=== PATIENT | female | born 1945 | race Caucasian/White ===

== ENCOUNTER → 2017-04-01 | Outpatient (CLI) | payer SELFPAY | LOC: US 16:12 | PROVIDERS: ATTEND Otolaryngology | DX: Z02.9 Encounter for administrative examinations, unspecified (principal) ==

== ENCOUNTER → 2017-04-07 | Outpatient (CLI) | payer MEDICARE, OTHER | LOC: US 09:07 | PROVIDERS: ATTEND Otolaryngology | DX: E04.1 Nontoxic single thyroid nodule (principal) | CPT/HCPCS: 88104; 88172 ==

== ENCOUNTER → 2017-04-07 | Outpatient (CLI) | payer MEDICARE, OTHER ==
[2017-04-07 08:49] LABS: INR 0.9
--- NOTE | 2017-04-07 16:27 | RADIOLOGY IMAGING REPORT ---
FACILITY: [facility] PATIENT NAME: Estela Koch : 1945 MR: [id number] V: [id number] EXAM DATE: ORDERING PHYSICIAN: MELLISA MORENO TECHNOLOGIST: Location: [facility] [place] Patient: Estela Koch : 1945 Visit/Account:[id number] Date of Sevice: 04/07/2017 Exam type: THYROID BIOPSY FINE NEEDLE ASP History: Right thyroid mass Comparison: Outside thyroid ultrasound. Findings: Informed consent was obtained. The right-sided the patient's neck was prepped and draped in usual st erile fashion. Local anesthesia was accomplished with 1% lidocaine. Under sonographic guidance four 25-gauge FNA biopsies were obtained through the complex cystic mass in the right lobe. Samples were given to the glass technologist for processing. The procedure was accomplished without apparent complication. IMPRESSION: 1. Successful sonographically guided right-sided thyroid biopsy Report Dictated By: Parvin Fay MD at 04/07/2017 4:21 PM Report E-Signed By: Parvin Fay MD at 04/07/2017 4:23 PM WSN:[email or web address]
== END ==
LOC: LAB 08:30
PROVIDERS: ATTEND Otolaryngology
DX: E04.1 Nontoxic single thyroid nodule (principal)
CPT/HCPCS: 10022; 36415; 76942; 85610

== ENCOUNTER → 2018-07-19 | Outpatient (CLI) | payer MEDICARE, OTHER ==
--- NOTE | 2018-07-19 10:27 | RADIOLOGY IMAGING REPORT ---
FACILITY: [facility] PATIENT NAME: Estela Koch : 1945 MR: [id number] V: [id number] EXAM DATE: ORDERING PHYSICIAN: MELLISA MORENO TECHNOLOGIST: Location: [facility] Patient: Estela Koch : 1945 Visit/Account:[id number] Date of Sevice: 07/19/2018 THYROID HISTORY: Thyroid Nodule COMPARISON: Ultrasound biopsy dated 04/07/2017 FINDINGS: SIZE: Normal. Right lobe: 5.8 x 2.9 x 3.7 cm Left lobe: 3.6 x 1.0 x 1.0 cm Isthmus: 102 mm Thyroid heterogeneity: Homogeneous. NODULES: Right lobe: * Complex solid and cystic nodule filling the right thyroid lobe measuring approximate 3.7 x 2.7 x 3 .5 cm, grossly not significantly changed since prior exam. The cystic component may be slightly incr eased. Solid components or not definitively increased. Left lobe: * No nodule with a high suspicion sonographic pattern or measuring greater than or equal to 1 cm. La rgest nodule measures up to 8 mm Isthmus: * None discrete. VASCULARITY: Within normal limits. ADDITIONAL FINDINGS: None. IMPRESSION: 1. Complex nodule within the right thyroid lobe with large cystic component. There is no gross sign ificant change since prior exam. 2. No dominant nodules within the left thyroid lobe. REFERENCE: 2015 [employer] Management Guidelines for Adult Patients with Thyroid Nodules and D ifferentiated Thyroid Cancer: The [place] [employer] Guidelines Task Force on Thyroid Nodul es and Differentiated Thyroid Cancer. SONOGRAPHIC PATTERNS: * Benign: Purely cystic nodules (no solid component); estimated risk of malignancy <1 percent; no bi opsy recommended. * Very Low Suspicion: Spongiform or partially cystic nodules without any of the sonographic features described in low, intermediate, or high suspicion patterns; estimated risk of malignancy <3 percent; consider FNA at > 2 cm (Observation without FNA is also a reasonable option). * Low Suspicion: Isoechoic or hyperechoic solid nodule, or partially cystic nodule with eccentric so lid areas, without microcalcification, irregular margin or ETE (extra-thyroidal extension), or taller than wide shape; estimated risk of malignancy 5-10 percent; recommend FNA at >1.5 cm. * Intermediate Suspicion: Hypoechoic solid nodule with smooth margins without microcalcifications, E TE (extra-thyroidal extension), or taller than wide shape; estimated risk of malignancy 10-20 percent ; recommend FNA at > 1 cm. * High Suspicion: Solid hypoechoic nodule or solid hypoechoic component of a partially cystic nodule with one or more of the following features: irregular margins (infiltrative, microlobulated), microc alcifications, taller than wide shape, rim calcifications with small extrusive soft tissue component, evidence of ETE (extra-thyroidal extension); estimated risk of malignancy >70-90 percent; recommend FNA at > 1 cm. NOTES: * Although a sonographically suspicious subcentimeter thyroid nodule without evidence of extrathyroi kim extension or sonographically suspicious lymph nodes may be observed with close sonographic follow -up rather than pursuing immediate FNA, patient age and preference may modify decision-making. * A > 50% interval increase in nodule volume and/or development of new suspicious sonographic featur es are felt to be a valid reasons for potential re-aspiration of a nodule previously shown to have be nign FNA cytology. Report Dictated By: Abdi Mas MD at 07/19/2018 10:21 AM Report E-Signed By: Abdi Mas MD at 07/19/2018 10:24 AM WSN:[email or web address]
== END ==
LOC: US 08:31
PROVIDERS: ATTEND Otolaryngology
DX: E04.1 Nontoxic single thyroid nodule (principal)
CPT/HCPCS: 76536

== ENCOUNTER 2018-08-21 01:37 | Observation (INO) | payer MEDICARE, OTHER ==
--- NOTE | 2018-08-11 12:48 | NUR ---
PT REPORTS SHE HAD EITHER AN MRI OR CT, NOT SURE WHICH, AND BECAME NAUSEATED AND HEART WAS RACING. PROCEDURE WAS STOPPED.
[2018-08-21] VITALS (14 sets, daily range): BP systolic 104–153; BP diastolic 47–111
[~2018-08-21] VITALS: Ht 168.9 cm; Wt 65.8 kg
[~2018-08-21 01:37] MED LIST: [UNRECOGNIZED DRUG - OTHER] PO
[2018-08-21] MEDS ORDERED: CLINDAMYCIN(*) 600 MG/NS 50 ML 50 ML IVPB ONE (05:15)
[2018-08-21] MEDS ORDERED: fentaNYL CITR 250 MCG/5 ML AMP ONE (10:32)
[2018-08-21] MEDS ORDERED: LIDOCAINE 2% IV 100 MG/5ML SYR ONE (10:33)
[2018-08-21] MEDS ORDERED: PROPOFOL EMUL(*) 10MG/ML 20 ML 20 ML ONE (10:33)
[2018-08-21] MEDS ORDERED: SUCCINYLCHOL CHL 100MG/5ML SYR IVP ONE (10:34)
[2018-08-21] MEDS: NORMOSOL R SOLN(*) 1000 ML BAG 1,000 ML IV PRN ×2 (11:02→15:20)
[2018-08-21] MEDS ORDERED: FAMOTIDINE 20 MG TAB PO ONE (11:45)
[2018-08-21] MEDS ORDERED: MIDAZOLAM 2 MG/2 ML VIAL IVP PRN (11:45)
[2018-08-21] MEDS ORDERED: LIDOCAINE/SOD BICARB 8.4% SYR ID ONE (11:45)
[2018-08-21] MEDS ORDERED: LIDO/EPI 1% MDV 1:100,000 20ML INFIL ONE (13:00)
[2018-08-21] MEDS ORDERED: DEXAMETHASONE SOD 4 MG/ML VIAL ONE (13:12)
[2018-08-21] MEDS ORDERED: ONDANSETRON 4 MG/2 ML VIAL ONE (13:13)
[2018-08-21] MEDS ORDERED: KETAMINE HCL 200 MG/20 ML MDV ONE (13:15)
--- NOTE | 2018-08-21 13:18 | Post Operative Note ---
Operative Note - ENT Operative Day Date: Aug 21, 2018 Physicians Surgeon: Buck [employer] Consultant: Giulia Anesthesia: GETA Diagnosis Pre-Op Diagnosis: uninodular goiter Post-Op Diagnosis: same Procedure Findings: see dictated note Procedure(s): right thyroid lobectomy Specimen Removed:(Maybe N/A): right thyroid lobe Complications: none Fluids Fluids: see anesthesia note Estimated Blood Loss: 50 ml MELLISA MORENO JR, MD Aug 21, 2018 13:18
[2018-08-21] MEDS ORDERED: APAP/HYDROCODONE 325/5 TAB PO PRN (13:20)
[2018-08-21] MEDS ORDERED: ACETAMINOPHEN 325 MG TAB PO PRN (13:20)
[2018-08-21] MEDS ORDERED: ONDANSETRON 4 MG ODT TABDP SL PRN (13:20)
[2018-08-21] MEDS ORDERED: MORPHINE 2 MG/ML SYR IVP PRN (13:20)
[2018-08-21] MEDS ORDERED: fentaNYL CITR 100 MCG/2 ML AMP ONE ×2 (14:42→14:59)
--- NOTE | 2018-08-21 15:14 | OPERATIVE REPORT 1 ---
EVENT DATE: August 21, 2018 SURGEON: Luis Jane MD ANESTHESIOLOGIST: Ab Boles MD ANESTHESIA: General endotracheal. REINFORCING IRON WORKER HELPER: Faiza Platt CST, CSFA PROCEDURE PERFORMED Right thyroid lobectomy. PREOPERATIVE DIAGNOSIS Uninodular goiter. POSTOPERATIVE DIAGNOSIS Uninodular goiter. INDICATIONS Please refer to the preoperative note. DESCRIPTION OF PROCEDURE The patient was positively identified in the preoperative area. She is accompanied there by her . Risks again explained including, but not limited to, bleeding, infection, injury to the recurrent laryngeal nerve, transient or permanent dysphonia and those associated with anesthesia. Patient acknowledged understanding of those risks. She was then brought back to the operative suite, laid supine on the operating table and anesthesia was administered. Of note, the laryngeal monitor was applied to the patient and utilized throughout the case. Favorable neck crease was identified over the thyroid gland. A 5 cm incision was planned. Approximately 1 cc of 1% Lidocaine was infiltrated. The patient was then prepped and draped in the usual sterile fashion. A #15 blade was utilized to make the incision in the aforementioned crease. The underlying subcutaneous tissue was then dissected with Bovie electrocautery. The platysmal muscle was identified and divided with Bovie electrocautery. Subplatysmal flaps were elevated superior to the level of the thyroid notch and inferiorly to the level of the sternal notch. The strap musculature was identified and divided along the median raphe. I then elevated the strap musculature off the enlarged right thyroid lobe. I then skeletonized the right superior pole of vessels used for a common cross with Harmonic scalpel. I then carefully medialized the lobe and dissected it from the surrounding connective tissue. Both parathyroid glands were felt to be identified and preserved. The recurrent laryngeal nerve was identified and confirmed with the nerve probe. This was traced to its entrance into the trachea. I then came across the inferior lobe vessels with a Harmonic scalpel. The lobe was medialized further and divided from the trachea at Luis Fernando's ligament. I then came across the junction between the right lobe and the isthmus with the Harmonic scalpel. The specimen was marked and sent for permanent pathology. The wound was then copiously irrigated with normal saline solution. A Valsalva maneuver was performed. Hemostasis was obtained. A small piece of fibrillar Surgicel was placed in the wound bed. I then closed the platysma and strap musculature with interrupted chromic suture. The skin was closed in a multi-layer fashion. The patient was then turned to anesthesia for emergence. ESTIMATED BLOOD LOSS 50 cc. COMPLICATIONS None. MTDD
[2018-08-21] MEDS ORDERED: PROMETHAZINE 25 MG/ML 1 ML AMP IVP PRN (18:45)
[2018-08-21] MEDS: LR(*) 1000 ML BAG 1,000 ML IV PRN (18:46)
[2018-08-21] MEDS ORDERED: CLINDAMYCIN(*) 600 MG/NS 50 ML 50 ML IVPB SCH (20:00)
[2018-08-21] MEDS: CLINDAMYCIN(*) 600 MG/NS 50 ML 50 ML IVPB SCH (20:47)
[2018-08-22 03:19] VITALS: BP 113/51
[2018-08-22] MEDS: CLINDAMYCIN(*) 600 MG/NS 50 ML 50 ML IVPB SCH (04:16)
[2018-08-22] MEDS: LR(*) 1000 ML BAG 1,000 ML IV PRN (05:03)
[2018-08-22 06:46] VITALS: BP 102/93
[2018-08-22] MEDS ORDERED: DOXY-179 PO (08:35)
[2018-08-22] MEDS ORDERED: HYDR-385 PO ×2 (08:35→11:07)
--- NOTE | 2018-08-22 08:37 | Hospitalist Depart ---
Discharge Summary Departure Weight (Pounds): 145 Condition: Improved Discharge: Home, Self Care Discharge Instructions Home Meds Active Scripts Hydrocodone Bit/Acetaminophen (HYDROCODON-ACETAMINOPHEN 5-325) 1 Each Tablet, 1 EACH PO Q6H for 3 Days, #15 TAB 0 Refills Prov:ESAU DURAN PA-C 08/22/18 Doxycycline Hyclate (DOXYCYCLINE HYCLATE) 100 Mg Tablet, 100 MG PO BID for 6 Days, #12 TAB 0 Refills Prov:ESAU DURAN PA-C 08/22/18 Reported Medications [Actaline] No Conflict Check, 1 TAB PO DAILY 08/11/18 Diet: Regular Activity: No Heavy Lifting (No lifting over 15 lbs) Special Instructions: May shower and have soapy water run over incision but do not scrub. Pat dry. Avoid sun while on doxycycline. Venous Thromboembolism Antithrombotics Is Pt On Any Antithrombotics?: No ESAU DURAN PA-C Aug 22, 2018 08:37
== END 2018-08-22 08:38 | disposition home or self-care (01) ==
LOC: OR 01:37 → MED 16:00 → INTOOBSV 16:00
PROVIDERS: ADMIT Otolaryngology; ATTEND Otolaryngology
DX: E04.1 Nontoxic single thyroid nodule (principal)
CPT/HCPCS: 60220; 88307; A9270; G0378; J0330; J1100; J2001; J2405; J2550; J2704; J3010; J3490; J7120; Q0162; S0119